=== PATIENT | female | born 1990 | race Hispanic/Latino ===

== ENCOUNTER 2019-10-24 12:13 | Emergency (ER) | payer OTHER ==
[~2019-10-24] VITALS: Ht 170.2 cm; Wt 81.6 kg
--- NOTE | 2019-10-24 13:23 | Diagnostic Imaging Report ---
Exam: Head CT without contrast History: Confusion Comparison studies: None Technique: Axial images were obtained from the skull base to the vertex. Coronal and sagittal images reconstructed from the axial data. Dose modulation, iterative reconstruction, and/or weight based adjustment of the mA/kV was utilized to reduce the radiation dose to as low as reasonably achievable. Radiation dose: Total DLP: 921.4 mGy*cm. Estimated effective dose: DLP x 0.015 Intravenous contrast: None Findings: Scalp: No abnormalities. Bones: No fractures, blastic or lytic lesions. Brain sulci: Appropriate for age. Ventricles: Normal in size and configuration. No hydrocephalus. Extra-axial spaces: No masses, no fluid collection. Parenchyma: No abnormal densities. No masses, hemorrhage, acute or chronic vascular insults. Sellar/suprasellar region: No abnormalities. Craniocervical junction: Patent foramen magnum. No Chiari one malformation. Included paranasal sinuses: Clear. Middle ear cavities and mastoids: Clear. IMPRESSION: No intracranial abnormalities. Signed by: Dr. Anthony Jain M.D. on 10/24/2019 1:19 PM
--- OUTSIDE RECORDS SUMMARY | 2019-10-24 13:42 | XMS REPORT | Continuity of Care Document ---
Author Author [facility] t Organization [facility] Address [address] [place] [address] Phone Unavailable Care Team Providers Care [employer] Special Agent Name Role Phone Bonnie SMILEY Attphybonnie Unavailable Payers Payer Name Policy Type Policy Number Effective Date Expiration Date S ource Problems This patient has no known problems. Allergies, Adverse Reactions, Alerts Allergy Name Allergy Type Status Severity Reaction(s) Onset Date Inacti ve Date Treating Clinician Comments Source No Known Allergies DA Active U 2011-11-20 00:00:00 [facility] Social History Smoking Status Start Date Stop Date Source Never Smoker Constance rivero Medications Ordered Medication Name Filled Medication Name Start Date Stop Da te Current Medication? Ordering Clinician Indication Dosage Frequency Signature (SIG) Comments Components Source codeine 10 mg-guaifenesin 100 mg/5 mL or al liquid Take 10 mL every 4 hours by oral route. codeine 10 mg-guaifenesin 100 mg/5 mL or al liquid Take 10 mL every 4 hours by oral route. No 10mL Q4H cod eine 10 mg-guaifenesin 100 mg/5 mL oral liquid Take 10 mL every 4 hours by oral route. [facility] Medrol (Chaitanya) 4 mg tablets in a dose pack as directed M edrol (Chaitanya) 4 mg tablets in a dose pack as directed No Medrol (Chaitanya) 4 mg tablets in a dose pack as directed [facility] ice ParaGard T 380A 380 square mm intrauterine device Para Gaviota T 380A 380 square mm intrauterine device No Para Gaviota T 380A 380 square mm intrauterine device [facility] ice ProAir HFA 90 mcg/actuation aerosol inha ler Inhale 2 puffs every 4 hours by inhalation route. ProAir HFA 90 mcg/actuation aerosol inha ler Inhale 2 puffs every 4 hours by inhalation route. No 2puff (s) Q4H ProAir HFA 90 mcg/actuation aerosol inhaler Inhale 2 puffs every 4 hours by inhalation route. [facility] Zithromax Z-Chaitanya 250 mg tablet TAKE 2 TAB LETS (500 MG) BY ORAL ROUTE ONCE DAILY FOR 1 DAY THEN 1 TABLET (250 MG) BY ORAL ROUTE ONCE DAILY FOR 4 DAYS Zithromax Z-Chaitanya 250 mg tablet TAKE 2 TABLETS (500 MG) BY ORAL ROUTE ONCE DAILY FOR 1 DAY THEN 1 TABLET (250 MG) BY ORAL ROUTE ONCE DAILY FOR 4 DAYS No Zithromax Z-Chaitanya 250 mg tablet TAKE 2 TABLETS (500 MG) BY ORAL ROUTE ONCE DAILY FOR 1 DAY THEN 1 TABLET (250 MG) BY ORAL ROUTE ONCE DAILY FOR 4 DAYS [facility] Vital Signs Vital Name Observation Time Observation Value Comments Source BP Diastolic 2018-12-21 00:00:00 95 mm[Hg] [facility] Height 2018-12-21 00:00:00 66.6 [in_i] [facility] BMI (Body Mass Index) 2018-12-21 00:00:00 29.6 kg/m2 [facility] BP Systolic 2018-12-21 00:00:00 122 mm[Hg] [facility] Body Weight 2018-12-21 00:00:00 186.8 [lb_av] [facility] BP Diastolic 2018-07-27 00:00:00 78 mm[Hg] [facility] Height 2018-07-27 00:00:00 66.6 [in_i] [facility] BMI (Body Mass Index) 2018-07-27 00:00:00 28.9 kg/m2 [facility] BP Systolic 2018-07-27 00:00:00 128 mm[Hg] [facility] Body Weight 2018-07-27 00:00:00 182.6 [lb_av] [facility] BP Diastolic 2018-03-13 00:00:00 78 mm[Hg] [facility] Height 2018-03-13 00:00:00 66.6 [in_i] [facility] BMI (Body Mass Index) 2018-03-13 00:00:00 27.7 kg/m2 [facility] BP Systolic 2018-03-13 00:00:00 138 mm[Hg] [facility] Body Weight 2018-03-13 00:00:00 175 [lb_av] [facility] Procedures This patient has no known procedures. Plan of Care Planned Activity Planned Date Details Comments Source Instructions [facility] Encounters Start Date/Time End Date/Time Encounter Type Admission Type Attendi [facility] Care Department Encounter ID Source 2018-12-21 00:00:00 2018-12-21 00:00:00 Stu Sanderson MD: [address] [place] [address], Ph. [facility] [id number] [facility] 2018-07-27 00:00:00 2018-07-27 00:00:00 Dai Gallego MD: [address] [place] [address], Ph. [facility] [id number] [facility] 2018-03-13 00:00:00 2018-03-13 00:00:00 Lee dsouza MD: [address] [place] [address], Ph. [facility] [id number] [facility] Results Test Description Test Time Test Comments Results Result Comments Source CT BRAIN WO 2019-10-24 13:17:00 [facility] [address] [address] Patient Name: MAURICIO ROLLE MR #: [id number] : 1990 Age/Sex: 28/F Req #: [id number] Adm Physician: Ordered by: BRYAN SMILEY DO Report #: [id number] Location: ER Room/Bed: Procedure: [id number] CT/CT BRAIN WO Exam Date: 10/24/19 Exam Time: 1300 REPORT STATUS: Signed Exam: Head CT without contrast History: Confusion Comparison studies: None Technique: Axial images were obtained from the skull base to the vertex. Coronal and sagittal images reconstructed from the axial data. Dose modulation, iterative reconstruction, and/or weight based adjustment of the mA/kV was utilized to reduce the radiation dose to as low as reasonably achievable. Radiation dose: Total DLP: 921.4 mGy*cm. Estimated effective dose: DLP x 0.015 Intravenous contrast: None Findings: Scalp: No abnormalities. Bones: No fractures, blastic or lytic lesions. Brain sulci: Appropriate for age. Ventricles: Normal in size and configuration. No hydrocephalus. Extra-axial spaces: No masses, no fluid collection. Parenchyma: No abnormal densities. No masses, hemorrhage, acute or chronic vascular insults. Sellar/suprasellar region: No abnormalities. Craniocervical junction: Patent foramen magnum. No Chiari one malformation. Included paranasal sinuses: Clear. Middle ear cavities and mastoids: Clear. IMPRESSION: No intracranial abnormalities. Signed by: Dr. William Jain M.D. on 10/24/2019 1:19 PM Dictated By: WILLIAM JAIN MD [id number] Transcribed By: TOBI on 10/24/19 1319 COPY TO: BRYAN SMILEY DO Novel Coronavirus 2019 nCoV 2019-10-23 16:05:00 Test Item Novel Coronavirus 2019 nCoV (test code = COVID19) Negative Nega tive Does patient have the clinical criteria consistent with COVID-19? YIs the patien t going to be discharged home? Y- CT ABD PELVIS W/O [id number] 13:08:00 Name: SARIAHMAURICIOIBETH CH [facility] : 1990 Age/S: 28 / F [address] [facility] Unit #: [id number] Loc: [place] [address] Phys: Jesenia Angulo MD Acct: [id number] Di s Date: Status: REG ER PHONE #: Exam Date: 10/21/2019 1256 FAX #: Reason: flank pain EXAMS: CPT CODE: [id number] CT ABD PELVIS W/O CONT [id number] REASON FOR EXAM: flank pa in EXAM ORDER DATE: 10/21/2019 12:36 PM Ordering MYung : Rowan Angulo MD PROCEDURE: Axial CT images were acquired through the abdomen/pelvis at 5 mm intervals. Sagittal and coronal reform atted images were generated. Automated exposure control was utilized for this reduction. Phases of contrast: None ALISSON RISON: No relevant priors FINDINGS: The absence of IV contrast limits sensitivity of this exam for the detection of soft tiss ue pathology Visualized thorax: Grossly normal Hepat obiliary system: Grossly normal Pancreas: Grossly normal Spleen: Grossly normal Adrenal glands: Grossly normal Genitourinary system: Intrauterine contraceptive device is present. Otherwise grossly normal. Specifically no stones or inflammatory changes involving either kidney or ureter Gastrointestinal tract and appen shruthi: Grossly normal Abdominal vascular structures: Grossly normal Peritoneum and retroperitoneum: No free fluid or free air. No ome ntal or mesenteric masses. No abnormal lymph nodes. Musculo skeletal structures and abdominal wall: Normal IMPRESSION: No acute intra-abdominal process. Specifically no abnormalities of the PA GE 1 Signed Report (CONTINUED) Name: MAURICIO ROLLE [facility] : [birth year] Age/S: / F [address] [facility] Unit #: [id number] Loc: [place] [address] Phys: Raine Angulo MD Acct: [id number] Dis Date: Status: REG ER PHONE #: Exam Date: 10/21/2019 1252 FAX #: [phone] Reason: flank pain EXAMS: CPT CODE: [id number] CT [place]BD PEL[place] [address] <Continued> kidneys or ureters to explain the patient's flank pain Location: [facility] at 1308 Reported and signed by: Kody Dean MD CC: Rowan Angulo MD Technologist:Katlin Madrid CTDI: DLP: Trnscb Date/Time: 10/21/2019 (6548) [id number] Orig Print D/T: S: 10/21/2019 (4804) PAGE 2 Signed Report COMPREHENSIVE METABOLIC [id number] 12:40:00* Test Item Value Reference Range Interpretation Comments SODIUM (test code = NA) 137 mmol/L 136-145 N POTASSIUM (test code = K) 3.9 mmol/L 3.5-5.1 N CHLORIDE (test code = CL) 101 mmol/L 101-109 N CARBON DIOXIDE (test code = CO2) 23.3 mmol/L 21-32 N ANION GAP (test code = GAP) 17 mmol/L 10-20 N GLUCOSE (test code = GLU) 117 mg/dL 74-106 H BLOOD UREA NITROGEN (test code = BUN) 7 mg/dL 3-21 N CREATININE (test code = CREAT) 0.88 mg/dL 0.55-1.3 N BUN/CREATININE RATIO (test code = BUN/CREA) 8.0 10-20 L TOTAL PROTEIN (test code = PROT) 8.0 g/dL 6.5-8.4 N ALBUMIN (test code = ALB) 3.9 g/dL 3.4-4.8 N GLOBULIN (test code = GLOB) 4.1 G/DL 1-10 N ALBUMIN/GLOBULIN RATIO (test code = A/G) 0.95 RATIO 0.75-1.50 N CALCIUM (test code = CA) 8.8 mg/dL 8.4-10.2 N BILIRUBIN TOTAL (test code = BILT) 0.40 mg/dL 0.0-1.0 N SGOT/AST (test code = AST) 19 U/L 6-32 N SGPT/ALT (test code = ALT) 31 U/L 12-78 N N ote: Change in REFERENCE RANGE due to new reagent method. ALKALINE PHOSPHATASE TOTAL (test code = ALKP) 52 U/L 38-126 N [id number] 12:40:00* Test Item Value Reference Range Interpretation Comments LIPASE (test code = LIP) 201 U/L 128-270 N [id number] 12:40:00* Test Item Value Reference Range Interpretation Comments MAGNESIUM (test code = MAG) 2.3 mg/dL 1.6-2.3 N CBC W/AUTO [id number] 12:29:00* Test Item Value Reference Range Interpretation Comments WHITE BLOOD CELL (test code = WBC) 10.5 K/mm3 4.5-12.5 N RED BLOOD CELL (test code = RBC) 4.82 mill/mm3 3.7-5.2 N HEMOGLOBIN (test code = HGB) 14.0 gram/dL 11.5-15.5 N HEMATOCRIT (test code = HCT) 41.5 % 36.0-46.0 N MEAN CELL VOLUME (test code = MCV) 86.1 fL 80-98 N MEAN CELL HGB (test code = MCH) 29.0 picogram 27.0-33.0 N MEAN CELL HGB CONCETRATION (test code = MCHC) 33.7 gram/dL 33.0-36. 0 N RED CELL DISTRIBUTION WIDTH (test code = RDW) 12.9 % 11.6-16. 2 N RED CELL DISTRIBUTION WIDTH SD (test code = RDW-SD) 41.1 fL 37 .0-51.0 N PLATELET COUNT (test code = PLT) 260 K/mm3 150-450 N MEAN PLATELET VOLUME (test code = MPV) 10.4 fL 6.7-11.0 N NEUTROPHIL % (test code = NT%) 73.9 % 39.0-69.0 H LYMPHOCYTE % (test code = LY%) 19.8 % 25.0-55.0 L MONOCYTE % (test code = MO%) 4.8 % 0.0-10.0 N EOSINOPHIL % (test code = EO%) 0.7 % 0.0-5.0 N BASOPHIL % (test code = BA%) 0.3 % 0.0-1.0 N NEUTROPHIL # (test code = NT#) 7.77 K/mm3 1.8-7.7 H LYMPHOCYTE # (test code = LY#) 2.08 K/mm3 1.0-5.0 N MONOCYTE # (test code = MO#) 0.50 K/mm3 0-0.8 N EOSINOPHIL # (test code = EO#) 0.07 K/mm3 0.0-0.5 N BASOPHIL # (test code = BA#) 0.03 K/mm3 0.0-0.2 N URINALYSIS [id number] 11:55:00* Test Item Value Reference Range Interpretation Comments UA COLOR (test code = COLU) YELLOW YELLOW UA APPEARANCE (test code = APPU) CLEAR CLEAR UA GLUCOSE DIPSTICK (test code = DGLUU) norm mg/dL NEGATIVE UA BILIRUBIN DIPSTICK (test code = BILU) NEGATIVE mg/dL NEGATIVE UA KETONE DIPSTICK (test code = KETU) neg mg/dL NEGATIVE UA SPECIFIC GRAVITY (test code = SGU) 1.005 1.001-1.035 UA BLOOD DIPSTICK (test code = NELSY) neg Jcarlos/uL NEGATIVE UA PH DIPSTICK (test code = CHRISSY) 6.0 5.0-8.0 UA PROTEIN DIPSTICK (test code = PROU) neg mg/dL Neg-15 UA UROBILINIOGEN DIPSTICK (test code = URO) norm mg/dL 0.0-0.2 UA NITRITE DIPSTICK (test code = SEAN) NEGATIVE NEGATIVE UA LEUKOCYTE ESTERASE DIPSTICK (test code = LEUU) neg uL NEGA TIVE UA WBC (test code = WBCU) 0-5 per HPF 0-5 UA RBC (test code = RBCU) 0-3 per HPF 0-5 UA EPITHELIAL CELLS (test code = EPIU) Few (2-5/hpf) per HPF Few UA BACTERIA (test code = BACU) TRACE per HPF NONE Urine Source? Clean CatchUR HCG [id number] 11:55:00* Test Item Value Reference Range Interpretation Comments UR HCG QUAL (test code = HCGQLU) NEGATIVE This HCGQL test is NOT applicable for MALE patients.Check with nurse about probable order error.If Tumor Marker Test needed, nurse should order test "HCGTU"(Test #550.27680) Urine Source? Clean CatchURINALYSIS [id number] 11:53:00* Test Item Value Reference Range Interpretation Comments UA COLOR (test code = COLU) YELLOW YELLOW UA APPEARANCE (test code = APPU) CLEAR CLEAR UA GLUCOSE DIPSTICK (test code = DGLUU) norm mg/dL NEGATIVE UA BILIRUBIN DIPSTICK (test code = BILU) NEGATIVE mg/dL NEGATIVE UA KETONE DIPSTICK (test code = KETU) neg mg/dL NEGATIVE UA SPECIFIC GRAVITY (test code = SGU) 1.005 1.001-1.035 UA BLOOD DIPSTICK (test code = NELSY) neg Jcarlos/uL NEGATIVE UA PH DIPSTICK (test code = CHRISSY) 6.0 5.0-8.0 UA PROTEIN DIPSTICK (test code = PROU) neg mg/dL Neg-15 UA UROBILINIOGEN DIPSTICK (test code = URO) norm mg/dL 0.0-0.2 UA NITRITE DIPSTICK (test code = SEAN) NEGATIVE NEGATIVE UA LEUKOCYTE ESTERASE DIPSTICK (test code = LEUU) neg uL NEGA TIVE UA WBC (test code = WBCU) per HPF 0-5 UA RBC (test code = RBCU) per HPF 0-5 UA EPITHELIAL CELLS (test code = EPIU) per HPF Few UA BACTERIA (test code = BACU) per HPF NONE Urine Source? Clean CatchUR HCG [id number] 11:53:00* Test Item Value Reference Range Interpretation Comments UR HCG QUAL (test code = HCGQLU) NEGATIVE This HCGQL test is NOT applicable for MALE patients.Check with nurse about probable order error.If Tumor Marker Test needed, nurse should order test "HCGTU"(Test #550.65803) Urine Source? Clean CatchURINALYSIS [id number] 11:52:00* Test Item Value Reference Range Interpretation Comments UA COLOR (test code = COLU) YELLOW UA APPEARANCE (test code = APPU) CLEAR UA BILIRUBIN DIPSTICK (test code = BILU) NEGATIVE UA SPECIFIC GRAVITY (test code = SGU) 1.001-1.035 UA PH DIPSTICK (test code = CHRISSY) 5.0-8.0 UA UROBILINIOGEN DIPSTICK (test code = URO) mg/dL 0.0-0.2 UA NITRITE DIPSTICK (test code = SEAN) NEGATIVE UA LEUKOCYTE ESTERASE DIPSTICK (test code = LEUU) uL NEGA TIVE UA WBC (test code = WBCU) per HPF 0-5 UA RBC (test code = RBCU) per HPF 0-5 UA EPITHELIAL CELLS (test code = EPIU) per HPF Few UA BACTERIA (test code = BACU) per HPF NONE Urine Source? Clean CatchUR HCG [id number] 11:52:00* Test Item Value Reference Range Interpretation Comments UR HCG QUAL (test code = HCGQLU) NEGATIVE This HCGQL test is NOT applicable for MALE patients.Check with nurse about probable order error.If Tumor Marker Test needed, nurse should order test "HCGTU"(Test #550.04559) Urine Source? Clean Catchrapid flu (A+B)2018-03-13 17:11:00* Test Item Value Reference Range Interpretation Comments Type Flu A (test code = Type Flu A) negative Type Flu B (test code = Type Flu B) negative [facility]
[2019-10-24 13:48] LABS: BASOPHILS # (AUTO) 0.1 (0.0-0.1); BASOPHILS % 0.6 % (0.0-1.0); EOSINOPHILS # (AUTO) 0.1 (0.0-0.4); EOSINOPHILS % 1.4 % (0.0-6.0); HEMATOCRIT 40.3 % (34.2-44.1); HEMOGLOBIN 13.7 g/dL (12.0-16.0); LYMPHOCYTES # (AUTO) 1.9 (1.0-3.2); LYMPHOCYTES % 22.4 % (18.0-39.1); MEAN CORPUSCULAR VOLUME 85.2 fL (81-99); MONOCYTES # (AUTO) 0.6 (0.2-0.8); MONOCYTES % 7.4 % (4.4-11.3); NEUTROPHILS # (AUTO) 5.8 (2.1-6.9); NEUTROPHILS % 67.3 % (38.7-80.0); PLATELET COUNT 265 x10e3/uL (140-360); RED BLOOD COUNT 4.73 x10e6/uL (3.6-5.1); RED CELL DISTRIBUTION WIDTH 13.1 % (11.7-14.4)
[2019-10-24 13:54] LABS: AMPHETAMINES SCREEN,URINE NEGATIVE (NEGATIVE); BENZODIAZEPINES SCREEN,URINE NEGATIVE (NEGATIVE); PHENCYCLIDINE SCREEN,URINE NEGATIVE (NEGATIVE); PREGNANCY TEST, URINE NEGATIVE (NEGATIVE)
[2019-10-24 14:08] LABS: ALANINE AMINOTRANSFERASE 26 IU/L (0-55); ALBUMIN 4.8 g/dL (3.5-5.0); ALBUMIN/GLOBULIN RATIO 1.7 (0.8-2.0); ALKALINE PHOSPHATASE 55 IU/L (40-150); ANION GAP 16.5 mmol/L (8-16); BLOOD UREA NITROGEN 6 mg/dL (7-26); BUN/CREATININE RATIO 8 (6-25); CARBON DIOXIDE 19 mmol/L (22-29); CHLORIDE 107 mmol/L (98-107); CREATINE KINASE 31 IU/L (29-168); CREATININE, SERUM 0.79 mg/dL (0.57-1.11); EST GLOMERULAR FILTRATION RATE > 60 ML/MIN (60-); GLUCOSE 93 mg/dL (74-118); POTASSIUM 3.5 mmol/L (3.5-5.1); SODIUM 139 mmol/L (136-145)
[2019-10-24] MEDS ORDERED: LORAZEPAM INJ 2 MG/ML VIAL IV ONE (14:45)
--- NOTE | 2019-10-24 16:12 | Emergency Department Note ---
History of Present Illnes History of Present Illness Chief Complaint: General Medicine Complaints History of Present Illness This is a 28 year old female arrived to the ED with complaints of difficulty concentrating, states her movements don't feel controlled, reports improvement with her anxiety meds. Chief Complaint Comment X 1 WEEK. CONTINUOUS PROBLEMS WITH MUSCLE CONTROL. "MY BRAIN IS NOT TELLING MY BODY TO RESPOND". WHILE SHE WAS DRIVING, HER FINGERS LOCKED UP AND SHE COULD NOT GRASP THE STERRING WHEEL. MOUTH IS GETTING STUCK. HER HEAD AND LEFT ARM FEELS LIKE THEY ARE BEING PRICKED WITH HOT NEEDLES PATIENT WAS ABLE TO WALK TO TRIAGE BUT STATES HER LEGS FEEL LIKE JELLO AND SHE IS BUMPING INTO STUFF. PATIENT SEEN AT [facility] AND TOLD SHE HAS A VIRAL INJECTION AND WAS DISCHARGED. SHE HAS BEEN DEALING WITH ANXIETY ALL HER LIFE AND BEGAN SEEING A PSYCHIATIST 3 DAYS AGO THAT PLACED HER ON HYDROXYZINE 50 MG. SHE IS SCHEDULED FOR NEUROLOGIST ON THE , BUT CAME TO E.R. TO DAY BECAUSE SHE COULD NOT WAIT THAT LONG TO RECEIVE TREATMENT Historian: Patient Arrival Mode: Car Onset (how long ago): day(s) Severity: mild Onset quality: gradual Duration (how long): day(s) Timing of current episode: intermittent Progression: waxing and waning Past Medical/Family History Physician Review I have reviewed the patient's past medical and family history. Any updates have been documented here. Past Medical History Recent Fever: No Clinical Suspicion of Infectio: No New/Unexplained Change in Ment: No Past Medical History: Anxiety Past Surgical History: Social History Smoking Cessation: Never Smoker Counseling Performed: Yes Alcohol Use: Occasional Any Illegal Drug Use: No Other Any Pre-Existing Lines (PICC,: No Review of Systems Review of Systems Constitutional: Reports no symptoms EENTM: Reports no symptoms Cardiovascular: Reports no symptoms Respiratory: Reports no symptoms Gastrointestinal: Reports no symptoms Genitourinary: Reports no symptoms Musculoskeletal: Reports no symptoms Integumentary: Reports no symptoms Neurological: Reports no symptoms Psychological: Reports as per HPI, Reports anxiety Endocrine: Reports no symptoms Hematological/Lymphatic: Reports no symptoms Physical Exam Related Data Allergies: Coded Allergies: No Known Allergies (Unverified , 10/24/19) Triage Vital Signs Vital Signs Date Time Temp Pulse Resp B/P (MAP) Pulse Ox O2 Delivery O2 Flow Rate FiO2 10/24/19 12:27 98.3 97 18 156/95 100 Room Air Vital signs reviewed: Yes Physical Exam CONSTITUTIONAL Constitutional: Present well-developed, Present well-nourished HENT HENT: Present normocephalic, Present atraumatic, Present oropharynx clear/moist, Present nose normal HENT L/R: Present left ext ear normal, Present right ext ear normal EYES Eyes: Reports PERRL, Reports conjunctivae normal NECK Neck: Present ROM normal PULMONARY Pulmonary: Present effort normal, Present breath sounds normal CARDIOVASCULAR Cardiovascular: Present regular rhythm, Present heart sounds normal, Present capillary refill normal, Present normal rate GASTROINTESTINAL Abdominal: Present soft, Present nontender, Present bowel sounds normal GENITOURINARY Genitourinary: Present exam deferred SKIN Skin: Present warm, Present dry MUSCULOSKELETAL Musculoskeletal: Present ROM normal NEUROLOGICAL Neurological: Present alert, Present oriented x 3, Present no gross motor or sensory deficits PSYCHOLOGICAL Psychological: Present mood/affect normal, Present judgement normal Results Laboratory Result Diagram: 10/24/19 1339 10/24/19 1339 Laboratory Laboratory Tests Test 10/24/19 13:39 White Blood Count 8.63 x10e3/uL (4.8-10.8) Red Blood Count 4.73 x10e6/uL (3.6-5.1) Hemoglobin 13.7 g/dL (12.0-16.0) Hematocrit 40.3 % (34.2-44.1) Mean Corpuscular Volume 85.2 fL (81-99) Mean Corpuscular Hemoglobin 29.0 pg (28-32) Mean Corpuscular Hemoglobin Concent 34.0 g/dL (31-35) Red Cell Distribution Width 13.1 % (11.7-14.4) Platelet Count 265 x10e3/uL (140-360) Neutrophils (%) (Auto) 67.3 % (38.7-80.0) Lymphocytes (%) (Auto) 22.4 % (18.0-39.1) Monocytes (%) (Auto) 7.4 % (4.4-11.3) Eosinophils (%) (Auto) 1.4 % (0.0-6.0) Basophils (%) (Auto) 0.6 % (0.0-1.0) Neutrophils # (Auto) 5.8 (2.1-6.9) Lymphocytes # (Auto) 1.9 (1.0-3.2) Monocytes # (Auto) 0.6 (0.2-0.8) Eosinophils # (Auto) 0.1 (0.0-0.4) Basophils # (Auto) 0.1 (0.0-0.1) Absolute Immature Granulocyte (auto 0.08 x10e3/uL (0-0.1) Urine Test Negative (NEGATIVE) Sodium Level 139 mmol/L (136-145) Potassium Level 3.5 mmol/L (3.5-5.1) Chloride Level 107 mmol/L (98-107) Carbon Dioxide Level 19 mmol/L (22-29) Anion Gap 16.5 mmol/L (8-16) Blood Urea Nitrogen 6 mg/dL (7-26) Creatinine 0.79 mg/dL (0.57-1.11) Estimat Glomerular Filtration Rate > 60 ML/MIN (60-) BUN/Creatinine Ratio 8 (6-25) Glucose Level 93 mg/dL (74-118) Calcium Level 9.0 mg/dL (8.4-10.2) Total Bilirubin 0.5 mg/dL (0.2-1.2) Aspartate Amino Transf (AST/SGOT) 17 IU/L (5-34) Alanine Aminotransferase (ALT/SGPT) 26 IU/L (0-55) Alkaline Phosphatase 55 IU/L (40-150) Creatine Kinase 31 IU/L (29-168) Creatine Kinase MB 0.40 ng/mL (0-5.0) Troponin I < 0.001 ng/mL (0-0.300) Total Protein 7.6 g/dL (6.5-8.1) Albumin 4.8 g/dL (3.5-5.0) Globulin 2.8 g/dL (2.3-3.5) Albumin/Globulin Ratio 1.7 (0.8-2.0) Urine Opiates Screen Negative (NEGATIVE) Urine Methadone Screen Negative (NEGATIVE) Urine Barbiturates Screen Negative (NEGATIVE) Urine Phencyclidine Screen Negative (NEGATIVE) Urine Amphetamines Screen Negative (NEGATIVE) Urine Methamphetamines Screen Negative (NEGATIVE) Urine Benzodiazepines Screen Negative (NEGATIVE) Urine Cocaine Screen Negative (NEGATIVE) Urine Cannabinoids Screen Negative (NEGATIVE) Lab results reviewed: Yes Imaging Imaging results reviewed: Yes Impressions Scalp: No abnormalities. Bones: No fractures, blastic or lytic lesions. Brain sulci: Appropriate for age. Ventricles: Normal in size and configuration. No hydrocephalus. Extra-axial spaces: No masses, no fluid collection. Parenchyma: No abnormal densities. No masses, hemorrhage, acute or chronic vascular insults. Sellar/suprasellar region: No abnormalities. Craniocervical junction: Patent foramen magnum. No Chiari one malformation. Included paranasal sinuses: Clear. Middle ear cavities and mastoids: Clear. IMPRESSION: No intracranial abnormalities. Assessment & Plan Medical Decision Making MDM 28-year-old well-appearing female arrived to the ED with atypical neurologic complaints. Patient admits to feeling anxiety and she can't focus, clinically patient appears well with no neuro deficits. Spoke to patient length that there may be an underlying neurologic component any further workup as an outpatient. Should informed she should be evaluated for possible multiple sclerosis versus other atypical neurological process, however, at this time patient stable for discharge home. CT brain unremarkable patient noted improvement with Ativan. Assessment & Plan Final Impression: (1) Anxiety Depart Disposition: HOME, SELF-CARE Last Vital Signs Date Time Temp Pulse Resp B/P (MAP) Pulse Ox O2 Delivery O2 Flow Rate FiO2 10/24/19 13:15 86 18 128/97 100 Room Air 10/24/19 12:27 98.3 Home Meds Active Scripts Lorazepam (ATIVAN) 1 Mg Tablet, 1 MG PO Q12HR PRN for ANXIETY, #12 Prov:BRYAN SMILEY DO 10/24/19 Medications in the ED Lorazepam 1 mg ONCE ONCE IV Last administered on 10/24/19at 15:07; Admin Dose 1 MG; Start 10/24/19 at 14:45; Stop 10/24/19 at 14:53; Status DC BRYAN SMILEY DO Oct 24, 2019 16:12
[2019-10-24] MEDS ORDERED: ATIVAN1 MG PO (16:25)
== END 2019-10-24 16:46 | disposition home or self-care (01) ==
LOC: ER 12:52
DX: F41.9 Anxiety disorder, unspecified (principal)
CPT/HCPCS: 36415; 70450; 80053; 80307; 81025; 82550; 82553; 84484; 85025; 99284; J2060